=== PATIENT | male | born 1950 | race Caucasian/White ===

== ENCOUNTER 2021-02-16 15:12 | Outpatient (CLI) | payer MEDICARE | END 2021-02-16 15:13 | disposition home or self-care (01) | LOC: CSHULT 15:12 | PROVIDERS: ATTEND Urology | DX: C67.9 Malignant neoplasm of bladder, unspecified (principal); R93.41 Abnormal radiologic findings on diagnostic imaging of renal pelvis, ureter, or bladder | CPT/HCPCS: 76770 ==

== ENCOUNTER 2022-08-26 10:16 | Outpatient (CLI) | payer MEDICARE | END 2022-08-26 10:17 | disposition home or self-care (01) | LOC: CSHRAD 10:16 | PROVIDERS: ATTEND Internal Medicine | DX: R06.09 Other forms of dyspnea (principal); R42 Dizziness and giddiness | CPT/HCPCS: 71046 ==

== ENCOUNTER 2024-04-01 17:47 | Emergency (ER) | payer MEDICARE | END 2024-04-01 21:23 | disposition home or self-care (01) | LOC: CSHERS 17:47 | DX: K59.00 Constipation, unspecified (principal); E11.9 Type 2 diabetes mellitus without complications; I10 Essential (primary) hypertension | CPT/HCPCS: 74018; 99283 ==